=== PATIENT | female | born 1995 | race Caucasian/White ===

== ENCOUNTER → 2018-01-08 11:25 | Outpatient (REF) | payer MEDICAID, SELFPAY ==
[2018-01-10 19:09] LABS: Measles Antibodies, IgG 57.6 AU/mL (Immune >29.9); Rubella Antibodies, IgG 1.26 index (Immune >0.99)
== END ==
LOC: LAB 11:25
PROVIDERS: Visit Provider Physician Assistant
DX: Z92.29 Personal history of other drug therapy (principal)
CPT/HCPCS: 86762; 86765

== ENCOUNTER → 2018-07-21 14:29 | Outpatient (REF) | payer MEDICAID, SELFPAY ==
[2018-07-24 08:25] LABS: Mumps Abs, IgG <9.0 AU/mL (Immune >10.9)
== END ==
LOC: LAB 14:29
PROVIDERS: Visit Provider Physician Assistant
DX: Z92.29 Personal history of other drug therapy (principal)
CPT/HCPCS: 86735

== ENCOUNTER → 2018-08-17 13:47 | Outpatient (CLI) | payer MEDICAID, SELFPAY | PROVIDERS: PCP Physician Assistant; Visit Provider Physician Assistant | DX: R06.81 Apnea, not elsewhere classified (principal); G47.33 Obstructive sleep apnea (adult) (pediatric) | CPT/HCPCS: 95806 ==

== ENCOUNTER → 2019-05-12 10:22 | Outpatient (CLI) | payer BC, MEDICAID, SELFPAY ==
[2019-05-12 13:02] LABS: HCG,Quantitative 231 mIU/mL
== END ==
PROVIDERS: Visit Provider Nurse Practitioner Obstetrics & Gynecology
DX: Z32.00 Encounter for pregnancy test, result unknown (principal)
CPT/HCPCS: 36415; 84702

== ENCOUNTER → 2019-05-24 11:19 | Outpatient (CLI) | payer BC, MEDICAID, SELFPAY ==
[2019-05-24 11:56] LABS: Basophils % 0.5 % (0.1-2.0); Eosinophils # 0.1 K/mm3 (0.0-0.4); Hematocrit 43.2 % (37.0-47.0); Hemoglobin 14.4 g/dL (12.2-16.2); Lymphocytes # 1.5 K/mm3 (0.7-4.5); Lymphocytes % 25.7 % (10-50); Mean Corpuscular HGB Conc 33.3 g/dL (31.8-35.4); Mean Corpuscular Hemoglobin 29.3 pg (27.0-31.2); Mean Corpuscular Volume 88.1 fl (81-99); Mean Platelet Volume 7.4 fl (7.4-10.4); Monocytes # 0.3 K/mm3 (0.1-1.0); Monocytes % 4.5 % (1.7-9.3); Neutrophils % 68.3 % (37.0-80.0); Platelet Count 292 K/mm3 (142-424); Red Blood Count 4.91 M/mm3 (4.20-5.40); Red Cell Distribution Width 13.9 % (11.5-17.5); White Blood Count 5.8 K/mm3 (4.8-10.8)
[2019-05-25 09:17] LABS: Rapid Plasma Reagin Ab Titer Non Reactive (NonRea<1:1)
[2019-05-26 17:40] LABS: HIV Screen 4th Generation wRfx Non Reactive (Non Reactive); Hepatitis B Surface Antigen Negative (Negative); Hepatitis C Antibody <0.1 s/co ratio (0.0-0.9); Rubella Antibodies, IgG <0.90 index (Immune >0.99)
== END ==
PROVIDERS: Visit Provider Nurse Practitioner Obstetrics & Gynecology
DX: Z34.90 Encounter for supervision of normal pregnancy, unspecified, unspecified trimester (principal)
CPT/HCPCS: 36415; 85025; 86592; 86703; 86762; 86850; 87340; 87380; G0432

== ENCOUNTER → 2019-05-26 12:28 | Outpatient (CLI) | payer BC, MEDICAID, SELFPAY ==
--- NOTE | 2019-05-26 12:29 | US_ITS ---
US OB transvaginal ORDERING PHYSICIAN : Kade Stoner MD PATIENT AGE: 23 years GENDER: Female HISTORY:ITS.REASON: US OB Dates COMPARISON: None TECHNIQUE: Transvaginal. FINDINGS: Exam shows a single intrauterine gestational sac, yolk sac and pole. The crown-rump length is 5.5 mm corresponding to age of 6 weeks and 3 days. heart rate is 105 bpm. Uterus is retroverted. Right ovary is 2.2 x 1.4 x 1.4 cm. Left ovary is 2.6 x 1.6 x 1.6 cm. There is no cul-de-sac fluid. IMPRESSION: Single intrauterine fetus of approximately 6 weeks and 3 days gestational age with heart rate of 105 bpm. Estimated date of delivery (a UA) is 01/16/2020.
== END ==
PROVIDERS: Visit Provider Nurse Practitioner Obstetrics & Gynecology
DX: O26.841 Uterine size-date discrepancy, first trimester (principal)
CPT/HCPCS: 76817

== ENCOUNTER → 2019-09-03 14:57 | Outpatient (CLI) | payer BC, SELFPAY ==
--- NOTE | 2019-09-03 14:59 | US_ITS ---
PROCEDURE: US OB /MATERNAL DETAIL CLINICAL INDICATION: us ob complete COMPARISON: OBTV US OB transvaginal from 05/26/2019 FINDINGS: Single viable intrauterine gestation. Cephalic position. Placenta: Anteriorplacenta grade 1. There is average amount fluid. The cervix appears satisfactory. Closed and measuring 5 centimeters in length. Complete survey performed and was unremarkable on the submitted images as in PACS. No discrete anomalies identified on survey imaging by technologist. Active fetus. Three-vessel cord with satisfactory umbilical cord insertion. 4- chamber heart noted. Survey of brain & ventricles Unremarkable. Face and neck survey unremarkable. Diaphragm and chest views unremarkable. Abdomen: Both kidneys noted and unremarkable. Stomach noted and satisfactory. Spine: Survey of the spine satisfactory with no anomalies identified nor imaged. Both arms and legs noted. Visualized portions of the fetus appear to be normal. Amniotic Fluid: Adequate. Maternal adnexa: No significant findings. Measurements: Average ultrasound age 148 days. Gestational Age 148 days Estimated due date by ultrasound age 0201/13/2020. Estimated weight 401.5 gramsgrams. BPD = 4.95 centimeters equals 21 weeks. OFD = 6.67 centimeters equals 22 days. HC = 18.45 centimeters equals 20 weeks 6 days. AC = 16.41 centimeters equals 21 weeks 4 days. FL = 3.44 centimeters equals 20 weeks 6 days. Growth Percentile= 57.2 Percent% Heart Rate = 144 bpm Cerebellum = unremarkable. Humerus = unremarkable. HC/AC is 1.12 CI is 0.74 FL/BPD is 0.69 FL/AC is 0.21 IMPRESSION: Single intrauterine fetus in cephalic presentation with heart rate of 144 beats per minute. Estimated gestational age (AUA) is 21 weeks 1 day. Estimated date of delivery (AUA), 01/13/2020. Dictated by: Ottoniel Underwood 09/03/2019 16:06 Electronically signed by Ottoniel Underwood in [facility] 09/03/2019 16:06
== END ==
PROVIDERS: Visit Provider Nurse Practitioner Obstetrics & Gynecology
DX: Z36.0 Encounter for antenatal screening for chromosomal anomalies (principal)
CPT/HCPCS: 76811

== ENCOUNTER 2019-10-22 07:09 | Outpatient (CLI) | payer BC, OTHER, SELFPAY ==
[2019-10-22 15:40] VITALS: BP 128/63; PULSE 90; RESP 18; O2SAT 97
== END 2019-10-22 15:50 | disposition home or self-care (01) ==
PROVIDERS: Visit Provider Nurse Practitioner Obstetrics & Gynecology
DX: Z34.90 Encounter for supervision of normal pregnancy, unspecified, unspecified trimester (principal)
CPT/HCPCS: 36415; 96372; J2790

== ENCOUNTER 2019-12-14 16:34 | Outpatient (CLI) | payer OTHER, SELFPAY ==
[2019-12-14 16:48] VITALS: BMI 36.0
[2019-12-14 16:50] VITALS: BP 99/61; PULSE 100; RESP 18; TEMP 36.9; O2SAT 98; BMI 36.0
[2019-12-14 17:17] LABS: Microscopic, Urine URINE MICROSCOPIC (MICROSCOPIC)
[2019-12-14 17:23] LABS: Fetal Membrane Rupture (Rapid) Negative (Negative)
[2019-12-14 17:24] LABS: Appearance,Urine CLEAR (Clear); Bacteria,Urine Trace /lpf; Bilirubin,Urine Negative (Negative); Blood, Urine TRACE-I (Negative); Color,Urine YELLOW (Yellow); Glucose,Urine (UA) Negative (Negative); Ketones,Urine Negative (Negative); Leukocyte Esterase,Urine Negative (Negative); Nitrate,Urine Negative (Negative); Protein,Urine Negative (Negative); Specific Gravity, Urine <= 1.005 (1.005-1.030); Urobilinogen,Urine 0.2 EU/dl (0.2); WBC,Urine Occasional #/hpf (0-3)
[2019-12-14 17:39] LABS: Amphetamine/Metha Screen,Urine Negative ng/mL (<1000); Barbiturates Screen,Urine Negative ng/mL (<200); Benzodiazepines Screen,Urine Negative ng/mL (<200); Cannabinoid Screen,Urine Negative ng/mL (<50); Cocaine Screen,Urine Negative ng/mL (<300); Methadone Screen,Urine Negative ng/mL (<300); Opiate Screen,Urine Negative ng/mL (<300); Phencyclidine Screen,Urine Negative ng/mL (<25)
== END 2019-12-14 17:35 | disposition home or self-care (01) ==
LOC: OBOUT 16:35 → OB 16:36
PROVIDERS: Visit Provider Nurse Practitioner Obstetrics & Gynecology
DX: O26.893 Other specified pregnancy related conditions, third trimester (principal); Z3A.35 35 weeks gestation of pregnancy
CPT/HCPCS: 59025; 80305; 81001; 84112; G0463

== ENCOUNTER → 2019-12-20 17:30 | Outpatient (CLI) | payer BC, OTHER, SELFPAY | PROVIDERS: Visit Provider Nurse Practitioner Obstetrics & Gynecology | DX: Z34.90 Encounter for supervision of normal pregnancy, unspecified, unspecified trimester (principal) | CPT/HCPCS: 86403 ==

== ENCOUNTER 2020-01-18 02:00 | Inpatient (IN) ==
[2020-01-18 05:51] LABS: Microscopic, Urine URINE MICROSCOPIC (MICROSCOPIC)
[2020-01-18 06:14] LABS: Basophils % 0.4 % (0.1-2.0); Eosinophils # 0.1 K/mm3 (0.0-0.4); Eosinophils % 0.6 % (0.1-12.0); Hematocrit 35.5 % (37.0-47.0); Hemoglobin 11.9 g/dL (12.2-16.2); Lymphocytes # 2.3 K/mm3 (0.7-4.5); Lymphocytes % 26.9 % (10-50); Mean Corpuscular HGB Conc 33.5 g/dL (31.8-35.4); Mean Corpuscular Volume 81.7 fl (81-99); Mean Platelet Volume 8.1 fl (7.4-10.4); Monocytes # 0.6 K/mm3 (0.1-1.0); Monocytes % 6.7 % (1.7-9.3); Neutrophils # 5.5 K/mm3 (1.8-7.8); Neutrophils % 65.4 % (37.0-80.0); Platelet Count 287 K/mm3 (142-424); Red Blood Count 4.34 M/mm3 (4.20-5.40); Red Cell Distribution Width 13.9 % (11.5-17.5); White Blood Count 8.4 K/mm3 (4.8-10.8)
[2020-01-18 06:26] LABS: Appearance,Urine CLEAR (Clear); Bilirubin,Urine Negative (Negative); Blood, Urine Negative (Negative); Color,Urine YELLOW (Yellow); Glucose,Urine (UA) Negative (Negative); Ketones,Urine Negative (Negative); Leukocyte Esterase,Urine Negative (Negative); PH,Urine 6.5 (5.0-8.5); Protein,Urine Negative (Negative); Urobilinogen,Urine 0.2 EU/dl (0.2)
[2020-01-18 06:40] LABS: Amphetamine/Metha Screen,Urine Negative ng/mL (<1000); Barbiturates Screen,Urine Negative ng/mL (<200); Benzodiazepines Screen,Urine Negative ng/mL (<200); Cannabinoid Screen,Urine Negative ng/mL (<50); Cocaine Screen,Urine Negative ng/mL (<300); Methadone Screen,Urine Negative ng/mL (<300); Opiate Screen,Urine Negative ng/mL (<300); Phencyclidine Screen,Urine Negative ng/mL (<25)
[2020-01-18 06:44] LABS: RBC,Urine Occasional #/hpf (0-3)
--- NOTE | 2020-01-18 08:18 | Progress Note ---
Labor Note - Subjective: Date: 01/18/20 Time: 08:17 regular contraction - Objective: NST:: Reactive Contractions:: every 2-3 minutes Cervical Dilation:: 5 Effacement:: 90% Membranes: spontaneously ruptured - Fetus: Monitoring?: Yes monitoring type:: External - Assessment: Labor progressing?: Yes Cephalopelvic disproportion?: No Patient Problems: All Active Problems Pharyngitis (Acute) (Acute) Chest wall pain (Acute) Acute bronchitis (Acute) Witnessed apneic spells (Chronic) History of MMR vaccination (Chronic) - Plan: Anesthesia for epidural?: No Continue to labor down?: Yes Plan for ?: No Continue to monitor?: Yes Start pushing?: No
--- NOTE | 2020-01-18 08:21 | History & Physical Report ---
OB - H&P: HPI Antepartum - History of Present Illness Chief complaint: She is postdates. History of present illness: She is a 24-year-old 2 para 1 at 40 and 2 weeks gestational age. She was found to be 4 to 5 cm in my office as a result of that we have elected to augment her labor. - History of Present Criteria for establishing EDC:: LMP confirmed by 1st trimester US care: good care Ultrasounds: normal 1st trimester US, normal mid trimester US Obstetrical complications: none Medical complications: none [facility] History I have reviewed the patient's past medical history: Yes *Have you ever received a pneumonia vaccine?: No *Have you received a flu vaccine this season?: No Laterality Cases: Bilateral: Tonsillectomy Other Surgeries: Yes: No Previous Surgery. No: Amputation: No Fractures: No - *Social History Smoking Status: Former smoker Tobacco Type: cigarettes # Packs/Day (cigarettes): 1 Alcohol Intake: never Substance Use Type: denies use *Occupational Status:: employed Housing: house Household Members: family *Travel in the last 8 weeks: None Family Hx:: Heart Attack Para: 1 Review of Systems - Review of Systems Review of systems:: pertinent systems reviewed and negative unless documented below Meds Home Medications Medication Instructions Recorded Confirmed Type No Known Home Medications 01/18/20 01/18/20 History Allergies Allergy/AdvReac Type Severity Reaction Status Date / Time No Known Allergies Allergy Verified 01/17/20 16:48 OB - H&P: Exam - Physical Exam Vital signs: Temp Pulse Resp BP 98.3 F 100 H 16 120/81 01/18/20 05:01 01/18/20 05:01 01/18/20 05:01 01/18/20 05:01 - Constitutional no acute distress - Routine HEENT Exam Head: Present: normocephalic Eye: Present: EOMI, PERRL ENT: Present: mucous membranes moist - Routine Neck Exam Present: supple, full ROM - Routine Respiratory Exam Absent: accessory muscle use (good air entry bilaterally), respiratory distress, wheezes, crackles - Routine Cardiovascular Exam Present: RRR. Absent: murmur - Routine Abdominal Exam Present: soft, normoactive bowel sounds. Absent: tenderness, distended, guarding - Routine Rectal Exam Patient deferred: visual exam, digital exam - Routine Exam Patient deferred: external exam, groin exam, perineal exam - Routine Extremities Exam Present: full ROM. Absent: cyanosis, edema - Routine Skin Exam Present: intact. Absent: cyanosis - Routine Neurological Exam Present: alert, oriented X3 - Routine Psychiatric Exam Present: normal affect OB - Results - Labs Labs: Short CBC 01/18/20 Range/Units 05:35 WBC 8.4 (4.8-10.8) K/mm3 Hgb 11.9 L (12.2-16.2) g/dL Hct 35.5 L (37.0-47.0) % Plt Count 287 (142-424) K/mm3 Urine 01/18/20 Range/Units 05:35 Urine Color Yellow (Yellow) Urine Appearance Clear (Clear) Urine pH 6.5 (5.0-8.5) Ur Specific [place] 1.020 (1.005-1.030) Urine Protein Negative (Negative) Urine Glucose (UA) Negative (Negative) OB - A/P Antepartum (1) Normal delivery Current visit: Yes Status: Acute - Additional Plan Planning to breastfeed?: Yes Plan: other Additional Information:: She is postdates and we have elected to augment her labor. Expect a vaginal delivery.
--- NOTE | 2020-01-18 09:50 | Procedure Note ---
- Delivery Note Delivery Date:: 01/18/20 Delivery Time:: 09:35 Anesthesia Type: None Was labor medically induced?: Yes Induction method: per pitocin protocol Gestational age (weeks): 40 Infant delivered prior to 39 weeks?: No Infant Gender: Male at 1 minute: 9 at 5 minutes: 9 Delivery Procedure:: She is a 24-year-old 2 para 1 at 40+2 weeks gestational age who was postdates. As result of that we brought her in for induction of labor. She was started on IV oxytocin had her membranes ruptured. She progressed to full dilation and delivered spontaneously a liveborn male child at 9:35 AM on the morning of January 18, 2020. On deliver the head the anterior shoulder then rapidly delivered followed by the rest the 's body atraumatically. The oropharynx and nasopharynx were bulb suction. The baby cried spontaneously. We allowed the cord to continue to pulsate for 1 minute. The cord was then doubly clamped and cut and the baby was placed on the mother's abdomen for further care. The nurses assigned Apgars of 9 at 1 minute and 9 at 5 minutes. We then obtained cord blood as well as cord pH. She received IV oxytocin and using gentle traction the cord and countertraction on the fundus I was able to easily deliver the placenta intact. He had a normal three-vessel cord. There were no perineal or vaginal lacerations. She has A Rh- blood, she is Zoey immune and was group B streptococcus negative. She plans to breast-feed. Her data operations director is Dr. Cruz. Estimated blood loss was less than 200 cc. Placental Delivery Description: Spontaneous
[2020-01-19 06:59] LABS: Hematocrit 35.4 % (37.0-47.0); Hemoglobin 11.8 g/dL (12.2-16.2)
--- NOTE | 2020-01-19 10:09 | Progress Note ---
Internal Medicine - PN: Subj *Date: 01/19/20 *Time: 10:08 Interval history: She continues to do well this morning. She is eating and drinking and ambulating. She is breast-feeding. Exam Vital signs and Labs for Last 24 Hours: Temp Pulse Resp BP 98.3 F 100 H 16 120/81 01/18/20 05:01 01/18/20 05:01 01/18/20 05:01 01/18/20 05:01 Laboratory Results - last 24 hr 01/19/20 06:25: Hgb 11.8 L, Hct 35.4 L I & O for Last 24 hours: Intake & Output 01/16/20 01/17/20 01/18/20 01/19/20 11:59 11:59 11:59 11:59 Weight 218 lb - Constitutional no acute distress Assessment and Plan (1) Normal delivery Current visit: Yes Status: Acute Category: Medical Code(s): O80 - Encounter for full-term uncomplicated delivery - Assessment and plan all Dx Assessment and Plan for all problems:: She is doing very well this morning. We will plan to send her home tomorrow.
[2020-01-20 08:28] VITALS: BP 125/77
--- NOTE | 2020-01-20 10:32 | Discharge Summary ---
General - General Admission date:: 01/18/20 Discharge date: 01/20/20 HPI HPI: She is a 24-year-old 2 now para 2 who was 40+2 weeks gestational age. She was found to be 4 to 5 cm in my office and since she was postdates we elected to augment her labor. Hospital Course Hospital Course: She was started on IV oxytocin and had her membranes ruptured. She progressed to full dilation and delivered spontaneously a liveborn male child at 9:35 AM in the morning of January 18, 2020. The baby weighed 7 pounds 9 ounces and was 19-1/2 inches long. He had Apgars of 9 at 1 minute and 9 at 5 minutes. She has done well and has remained afebrile throughout her hospitalization. She is eating and drinking and ambulating. She is breast- feeding. Her lochia is normal. She has A Rh- blood. She has received RhoGam. She is rubella nonimmune and will receive MMR. She was group B streptococcus negative. Her finisher cold rolling is Dr. Cruz. She is discharged home to follow-up with me in approximately 2 weeks time. She will continue with her vitamins and iron. She will just take [id number] analgesics for any discomfort. Her condition on discharge is stable and improved. Rhogam Administration: Given Objective Vital signs: Temp Pulse Resp BP Pulse Ox 97.8 F 86 18 125/77 98 01/20/20 08:00 01/20/20 08:00 01/20/20 08:00 01/20/20 08:00 01/20/20 08:00 no acute distress - *Routine HEENT Exam Head: Present: normocephalic Eye: Present: EOMI, PERRL ENT: Present: mucous membranes moist Results Labs on day of discharge: Labs from last 24 hours 01/19/20 01/19/20 14:40 06:25 Blood Type A Negative Antibody Screen Negative Screen Negative Baby's Rh Status Positive Rhogam Infusion Rhogam release DS: Diagnosis - Discharge Diagnosis (1) Normal delivery Status: Acute Discharge Plan - Patient Discharge Instructions ACTIVITY: No heavy lifting DIET: continue same diet Additional Instructions: No heavy lifting, no strenuous activity, nothing in the vagina for 6 weeks. Patient Instructions: Depression, Labor and Delivery, Vaginal , Hemorrhage, [facility] Post Discharge Instructions - Follow up Plan Follow up with: Kade Stoner MD [Staff Physician] - 02/01/20 1:30 pm Disposition: Home, Self-Halfway Medications: Home Medications Medication Instructions Recorded Confirmed Type No Known Home Medications 01/18/20 01/18/20 History Prescriptions/Medication Reconciliation: Continued No Known Home Medications - Problem Reconciliation Problems Reviewed?: Yes
== END 2020-01-20 12:00 | disposition home or self-care (01) | DRG 807 ==
LOC: OB 04:53
PROVIDERS: ADMIT Nurse Practitioner Obstetrics & Gynecology; ATTEND Nurse Practitioner Obstetrics & Gynecology
CPT/HCPCS: 36415; 59025; 80305; 81001; 82800; 85014; 85018; 85025; 85461; 86850; J2790

== ENCOUNTER → 2021-01-22 15:58 | Outpatient (CLI) | payer OTHER, SELFPAY ==
[2021-01-22 16:52] LABS: Basophils # 0.1 K/mm3 (0-0.2); Basophils % 0.5 % (0.1-2.0); Eosinophils # 0.2 K/mm3 (0.0-0.4); Eosinophils % 1.7 % (0.1-12.0); Hematocrit 44.5 % (37.0-47.0); Hemoglobin 14.2 g/dL (12.2-16.2); Lymphocytes # 2.5 K/mm3 (0.7-4.5); Mean Corpuscular HGB Conc 31.8 g/dL (31.8-35.4); Mean Corpuscular Hemoglobin 27.5 pg (27.0-31.2); Mean Corpuscular Volume 86.3 fl (81-99); Mean Platelet Volume 7.6 fl (7.4-10.4); Monocytes # 0.5 K/mm3 (0.1-1.0); Monocytes % 5.9 % (1.7-9.3); Neutrophils # 5.8 K/mm3 (1.8-7.8); Neutrophils % 63.9 % (37.0-80.0); Platelet Count 326 K/mm3 (142-424); Red Blood Count 5.15 M/mm3 (4.20-5.40); Red Cell Distribution Width 14.1 % (11.5-17.5); White Blood Count 9.1 K/mm3 (4.8-10.8)
[2021-01-22 18:21] LABS: Free Thyroxine Index 3.2 ug/dL (5.93-13.13); T4 (Thyroxine) 11.6 ug/dl (5.53-11.0); Triiodothryronine (T3) Uptake 28 % (23.5-40.5)
[2021-01-22 18:35] LABS: Thyroid Stimulating Hormone 1.12 uIU/mL (0.465-4.68)
== END ==
PROVIDERS: Visit Provider Nurse Practitioner Obstetrics & Gynecology
DX: R53.82 Chronic fatigue, unspecified (principal); N92.6 Irregular menstruation, unspecified
CPT/HCPCS: 36415; 82670; 83001; 83002; 84436; 84443; 84479; 85025

== ENCOUNTER → 2021-12-20 19:22 | Outpatient (CLI) | payer BC, SELFPAY | PROVIDERS: Visit Provider Nurse Practitioner Family | DX: U07.1 COVID-19 (principal); J02.9 Acute pharyngitis, unspecified | CPT/HCPCS: C9803; U0003; U0005 ==

== ENCOUNTER 2023-11-11 18:40 | Emergency (ER) | payer BC, SELFPAY ==
[2023-11-11 19:00] VITALS: BP 123/79; PULSE 94; RESP 18; TEMP 36.8; O2SAT 99; BMI 32.5
[2023-11-11 19:22] LABS: Coronavirus 19, PCR Not Detected (NotDetected); Influenza A, PCR Not Detected (NotDetected); Influenza B, PCR Not Detected (NotDetected)
--- NOTE | 2023-11-11 19:25 | EXP.UTC ---
Discharge Plan Disposition Patient Disposition: Home, Self-Care Condition: Good Prescriptions Prescriptions: New ibuprofen [ibuprofen] 600 mg tablet 600 mg PO Q6HP PRN (Reason: Mild Pain) Qty: 30 0RF ondansetron 4 mg Tablet,Disintegrating 4 mg PO Q8H PRN (Reason: Nausea) Qty: 12 0RF No Action multivitamin Tablet 1 tab PO DAILY Referrals Follow up/Referrals: Provider,Referral, MD [Primary Care Provider] - See instructions Activity Restrictions/Add. Instructions Additional Instructions/Restrictions: Drink plenty of fluids. Take tylenol or ibuprofen for pain or fever. Take the medications as directed. Follow up with your regular doctor. GO TO THE ER FOR ANY WORSENING SYMPTOMS Clinical Impressions Clinical Impression: Acute viral syndrome Instructions Patient Instructions: DI for Viral Syndrome Discharge ED Provider: Ricardo Vaca [facility] General Stated complaint: shaky, weak, numbness Mode of Arrival: Ambulatory Source of Information: Patient Limitations: No Limitations Time Seen by Provider: 11/11/23 19:25 Description of Symptoms (Recalled from Triage Doc. by RN): Pt stated that she feels shaky, tingling in hand and upper part of mouth, and fatigue HEENT Symptoms (Recalled from RN notes): Yes Resp Symptoms (Recalled from RN notes): No Skin Symptoms (Recalled from RN notes): No MS Symptoms (Recalled from RN notes): No Functional Status (Recalled from RN notes): n/a History of Present Illness Provider Complaint: She states that for the past 2 days she has had malaise, fatigue, weakness, shakiness, and tingling of her bilateral hands and around her mouth. She denies any chest pain, shortness or breath, focal weakness, headache, vision changes and any other symptoms. Her did have a runny nose, cough and fever several days ago, but he is better now. Related Data Home Medications Medication Instructions Recorded Confirmed multivitamin 1 tab PO DAILY 01/22/21 11/11/23 Previous Rx's Medication Instructions Recorded ibuprofen 600 mg tablet 600 mg PO Q6HP PRN Mild Pain #30 11/11/23 tabs ondansetron 4 mg disintegrating 4 mg PO Q8H PRN Nausea #12 tabs 11/11/23 tablet Allergies Allergy/AdvReac Type Severity Reaction Status Date / Time No Known Allergies Allergy Verified 11/11/23 19:20 Worker's Comp Is this a Worker's Comp case?: No [facility] Disclaimer: The information contained in this section may have been updated after the patient was seen, as this information can be updated by other users. Medical History (Updated 11/11/23 @ 20:07 by Ricardo Vaca APRN) History of MMR vaccination Witnessed apneic spells Social History Smoking Status: Never smoker alcohol intake: never substance use type: denies use current occupational status: employed Travel in the last 8 weeks: None household members: family housing: house ROS Obtained: Yes All systems reviewed & no additional complaints except as documented Constitutional Constitutional: Reports as per HPI, Reports chills, Reports fatigue, Denies fever(s) and Reports weakness Eyes Eyes: Denies eye discharge ENT Ears, Nose, Mouth, and Throat: Reports as per HPI Cardiovascular Cardiovascular: Denies chest pain Respiratory Respiratory: Denies chest congestion and Reports cough Gastrointestinal Gastrointestingal: Reports nausea; Denies abdominal pain, constipation, cramping, diarrhea or vomiting Musculoskeletal Musculoskeletal: Denies arthralgias Integumentary/Breasts Skin/Breast: Denies rash Neurologic Neurologic: Denies paresthesias and Reports weakness Endocrine Endocrine: Reports fatigue Physical Exam General General appearance: alert and in no apparent distress Head Head exam: atraumatic, normocephalic and normal inspection Eye Eye exam: Present normal appearance, PERRL and EOMI ENT ENT exam: Present normal exam, normal pierre
--- NOTE | 2023-11-11 19:30 | ECG_ITS ---
APPROVED REPORT Exam: Resting ECG HR:96 bpm ECG Measurements Heart Rate 96 AXES ND 143 P 53 QRSd 81 QRS 106 QT 339 T 34 QTc 392 Conclusion SINUS RHYTHM RIGHT AXIS DEVIATION [QRS AXIS > 100] LOW QRS VOLTAGE IN PRECORDIAL LEADS [QRS DEFLECTION < 1.0 mV IN CHEST LEADS] ABNORMAL ECG UNCONFIRMED REPORT Electronically signed by : Сергей Crockett MD 11/12/2023 08:56:27
[2023-11-11 20:33] VITALS: BP 123/79; PULSE 94; RESP 18; TEMP 36.8; O2SAT 99
== END 2023-11-11 20:33 | disposition home or self-care (01) ==
PROVIDERS: Emergency Provider Nurse Practitioner Family
DX: R53.1 Weakness (principal); R20.2 Paresthesia of skin; R53.81 Other malaise; B34.9 Viral infection, unspecified; R11.0 Nausea
CPT/HCPCS: 87636; 93005; 99204; 99212; G0463

== ENCOUNTER 2024-06-29 10:02 | Outpatient (CLI) | payer BC, SELFPAY ==
[2024-06-29 18:47] LABS: Basophils # 0.1 K/mm3 (0-0.2); Basophils % 0.9 % (0.1-2.0); Eosinophils # 0.1 K/mm3 (0.0-0.4); Eosinophils % 1.5 % (0.1-12.0); Hematocrit 46.1 % (37.0-47.0); Hemoglobin 15.1 g/dL (12.2-16.2); Lymphocytes # 1.6 K/mm3 (0.7-4.5); Lymphocytes % 24.8 % (10-50); Mean Corpuscular HGB Conc 32.7 g/dL (31.8-35.4); Mean Corpuscular Hemoglobin 29.2 pg (27.0-31.2); Mean Corpuscular Volume 89.4 fl (81-99); Mean Platelet Volume 8.1 fl (7.4-10.4); Monocytes # 0.5 K/mm3 (0.1-1.0); Monocytes % 7.6 % (1.7-9.3); Neutrophils # 4.1 K/mm3 (1.8-7.8); Neutrophils % 65.1 % (37.0-80.0); Platelet Count 352 K/mm3 (142-424); Red Blood Count 5.16 M/mm3 (4.20-5.40); White Blood Count 6.3 K/mm3 (4.8-10.8)
[2024-06-29 19:03] LABS: Alanine Aminotransferase 28 U/L (12-78); Albumin Level 4.2 g/dl (3.5-5.0); Albumin/Globulin Ratio 1.4 (1.1-1.8); Alkaline Phosphatase 61 U/L (38-126); Amylase 64 U/L (30-110); Anion Gap 13.1 mEq/L (5-15); Aspartate Amino Transferase 31 U/L (14-36); Bilirubin,Total 0.4 mg/dl (0.2-1.3); Blood Urea Nitrogen 7 mg/dl (7-17); Calcium 9.7 mg/dl (8.4-10.2); Carbon Dioxide 26 mmol/L (22.0-30.0); Chloride 106 mmol/L (98-107); Chol/HDL Ratio 4.2 (1-3.5); Cholesterol 220 mg/dl (140-200); Estimated Glomerular Filt Rate 84 ml/min (>60); GFR (African American) 101 ML/MIN (>60); Glucose 84 mg/dl (74-100); HDL Cholesterol 53 mg/dl (40-60); Lipase 114 U/L (23-300); Potassium 4.1 mmoL/L (3.5-5.1); Sodium 141 mmol/L (136-145); Total Protein,Serum 7.2 g/dl (6.3-8.2); Triglycerides 125 mg/dl (30-150); VLDL Cholesterol 25 mg/dL (0-40)
[2024-06-29 19:14] LABS: Direct LDL Cholesterol 128.69 mg/dL (100-129)
[2024-06-29 19:20] LABS: 25-OH Vitamin D, Total 47.4 ng/mL (30-100)
[2024-06-29 19:34] LABS: Thyroid Stimulating Hormone 0.73 uIU/mL (0.465-4.68)
[2024-06-29 19:59] LABS: Hemoglobin A1C 4.9 % (4.0-6.0)
== END 2024-06-29 23:59 | disposition home or self-care (01) ==
LOC: LAB.DROPOF 06-30 10:02
PROVIDERS: PCP Student in an Organized Health Care Education/Training Program; Visit Provider Student in an Organized Health Care Education/Training Program
DX: J32.9 Chronic sinusitis, unspecified (principal); K21.9 Gastro-esophageal reflux disease without esophagitis; Z13.21 Encounter for screening for nutritional disorder; Z13.220 Encounter for screening for lipoid disorders; E66.9 Obesity, unspecified; Z68.35 Body mass index [BMI] 35.0-35.9, adult; Z13.29 Encounter for screening for other suspected endocrine disorder; Z13.1 Encounter for screening for diabetes mellitus
CPT/HCPCS: 80050; 80053; 80061; 82150; 82306; 83036; 83690; 84443; 85025

== ENCOUNTER 2024-07-15 10:21 | Outpatient (CLI) | payer BC, SELFPAY ==
--- NOTE | 2024-07-15 10:26 | US_ITS ---
PROCEDURE: US TRANSVAGINAL CLINICAL INDICATION: pelvic pain, abnormal uterine bleeding COMPARISON: No exams were available for comparison FINDINGS: Transvaginal sonographic images of the pelvis were obtained. UTERUS: 8.3cm x 7.1cmx 5.6 cm retroverted with a combined endometrial thickness of 14.2mm. Endometrium appears homogeneous. LEFT OVARY: 3.2cmx1.3cmx2.3cm with a volume of 5ml. There are multiple small peripheral follicles. RIGHT OVARY: 3.4cmx 2.6 cmx2.2cm with a volume of 10.2ml. There are multiple small peripheral follicles. Both ovaries are seen and appear normal. Doppler flow to both ovaries are seen. There is no fluid in the cul-de-sac. IMPRESSION: 1. Retroverted uterus normal in shape and size. 2. The endometrium is homogeneous and thickened measuring 14.2 mm. 3. Both ovaries are seen and have multiple peripheral follicles. 4. No fluid in sac Dictated by: Kade Stoner MD 07/16/2024 09:43 Kade Stoner MD in [facility] 07/16/2024 09:43
== END 2024-07-15 23:59 | disposition home or self-care (01) ==
LOC: RAD 10:23
PROVIDERS: PCP Student in an Organized Health Care Education/Training Program; Visit Provider Obstetrics & Gynecology
DX: N93.9 Abnormal uterine and vaginal bleeding, unspecified (principal); R10.2 Pelvic and perineal pain
CPT/HCPCS: 76830